=== PATIENT | male | born 1965 | race Caucasian/White ===

== ENCOUNTER 2020-04-27 08:27 | Emergency (ER) | payer MEDICARE ==
[~2020-04-27] VITALS: Ht 172.7 cm; Wt 80.7 kg
[~2020-04-27 08:27] MED LIST: ALBU90OI INH; AZIT250 PO; LORA1 PO; OXYACE5T PO; PRED20 PO; RISP.25 PO; RXOXYACE PO; Ventolin Soln3 ML INH; [UNRECOGNIZED DRUG - CODE] IM
[2020-04-27] MEDS ORDERED: Tylenol325 MG PO (09:23)
[2020-10-16] MEDS ORDERED: QUET25 PO (16:30)
[2020-10-16] MEDS ORDERED: Ativan1 MG PO (19:04)
== END 2020-04-27 09:39 | disposition home or self-care (01) ==
LOC: ER 08:27
DX: S80.02XA Contusion of left knee, initial encounter (principal); J44.9 Chronic obstructive pulmonary disease, unspecified; Z88.6 Allergy status to analgesic agent; Z79.899 Other long term (current) drug therapy; Z87.891 Personal history of nicotine dependence; W06.XXXA Fall from bed, initial encounter
CPT/HCPCS: 73562-LT; 99283-25

== ENCOUNTER 2021-06-30 09:15 | Inpatient (IN) | payer MEDICARE ==
[~2021-06-30] VITALS: Ht 172.7 cm; Wt 47.8 kg
[~2021-06-30 09:15] MED LIST changes: +Ativan1 MG PO; +QUET25 PO; +Tylenol325 MG PO
[2021-06-30 09:51] LABS: BASOPHILS ABSOLUTE AUTO 0.01 K/mm3 (0.00-0.23); BASOPHILS PERCENT AUTO 0 % (0-2); EOSINOPHILS ABSOLUTE AUTO 0.02 K/mm3 (0.00-0.68); EOSINOPHILS PERCENT AUTO 0 % (0-6); Hematocrit 34.2 % (37.0-53.0); Hemoglobin 10.9 g/dL (13.5-17.5); IMMATURE GRAN ABSOLUTE AUTO 0.05 K/mm3 (0.00-0.10); IMMATURE GRAN PERCENT AUTO 1 % (0-1); LYMPHOCYTES ABSOLUTE AUTO 0.43 K/mm3 (0.84-5.20); LYMPHOCYTES PERCENT AUTO 6 % (21-46); MONOCYTES PERCENT AUTO 5 % (4-13); Mean Corpuscular HGB 27.7 pg (26.0-34.0); Mean Corpuscular HGB Conc 31.9 g/dL (31.5-36.5); Mean Corpuscular Volume 87 fL (80-100); Mean Platelet Volume 8.2 fL (9.1-12.4); NEUTROPHILS PERCENT AUTO 88 % (41-73); Platelet Count 516 K/mm3 (150-400); RDW Coefficient Variation 12.9 % (11.7-14.2); RDW Standard Deviation 40.9 fL (35.1-46.3); Red Blood Cell Count 3.93 M/mm3 (4.30-5.90); White Blood Cell Count 7.81 K/mm3 (4.00-11.30)
[2021-06-30 10:17] LABS: Alanine Aminotransfer (ALT/SGP 34 U/L (12-78); Albumin, Blood 2.5 g/dL (3.4-5.0); Albumin/Globulin Ratio 0.5 (0.8-1.8); Alk Phos 118 U/L (50-136); Anion Gap 6 mmol/L (6-16); Aspartate Aminotrans (AST/SGOT 21 U/L (12-37); Bilirubin, Total 0.1 mg/dL (0.1-1.0); Blood Urea Nitrogen 5 mg/dL (8-24); Bun/Creatinine Ratio 12.8 (12.0-20.0); CO2, Blood 34 mmol/L (21-32); Calcium, Blood 8.8 mg/dL (8.5-10.1); Chloride, Blood 88 mmol/L (98-108); Creatinine, Blood 0.39 mg/dL (0.60-1.20); Globulin, Blood 4.9 g/dL (2.2-4.0); Glomerular Filtration Rate >60 (60-); Glucose, Blood 116 mg/dL (70-99); Potassium, Blood 4.3 mmol/L (3.5-5.5); Sodium, Blood 128 mmol/L (136-145); Total Protein, Blood 7.4 g/dL (6.4-8.2)
[2021-06-30 10:32] LABS: Influenza A, PCR NEGATIVE (NEGATIVE); Influenza B, PCR NEGATIVE (NEGATIVE); Resp Syncytial Virus, PCR NEGATIVE (NEGATIVE); SARS-Cov-2 (COVID-19) PCR, MMC NEGATIVE (NEGATIVE)
--- NOTE | 2021-06-30 14:13 | NUR ---
NEW ER PT. PT A/O X3 PLEASANT. ANSWERS GENERAL QUESTIONS PLEASANTLY. TALKATIVE. STAYS AT [facility]. HX SCHIZZOPHRENIA. H/R REG, NO MURMER NOTED. NO TELE. LUNGS DIM T/O. CLEAR, RESP EASY, UNLABORED. ON 2L O2. PT STATES THIS IS NOT NORMAL FOR HIM. STATES FEELS SOB WHEN COUGHING FIT. COUGHS UP OCC MOIST THICK WHITE FLUID. BT X4 LAST BM YEST PER PT. VOIDS STANDING FOR URINAL. REQUESTEED HIM TO GET ASSISTANCE, STATES FEELS SOME WEAKER THAN NORMAL. STATES HE WALKS ABOUT DISTANCE TO ELEVATOR EVERY 1-2 HRS AT HOME TO SMOKE. EVERY DAY. REFUSED NICOTINEPATCH. BED IN LOW POSITION, CALL LITE IN REACH, BED ALARM ON FOR SAFETY
--- NOTE | 2021-06-30 18:16 | NUR ---
PT PLEASANT SINCE ADMIT. PT HAS HX OF COPD AND SCHIZZOPHRENIA. HAS BEEN PLEASANT AND COOP TODAY. 1L FLUIDS RUNNING. HR REG, NO MURMER NOTED. LUNGS CLEAR, BUT DIM. DID GIVE SOLU-MEDROL TODAY. PT CONTINUES TO BE ON 2L O2 TO KEEP SATS >91%. HE DID AMBULATE TO BATHROOM TODAY SBA. NO NEW CONCERNS NOTED. BED IN LOW POSITION, CALL LITE IN REACH, CALLS APPROP
[2021-07-01 05:29] LABS: Hematocrit 35.1 % (37.0-53.0); Hemoglobin 10.9 g/dL (13.5-17.5); Mean Corpuscular HGB 27.3 pg (26.0-34.0); Mean Corpuscular HGB Conc 31.1 g/dL (31.5-36.5); Mean Corpuscular Volume 88 fL (80-100); Mean Platelet Volume 8.1 fL (9.1-12.4); Platelet Count 546 K/mm3 (150-400); RDW Coefficient Variation 12.8 % (11.7-14.2); RDW Standard Deviation 41.7 fL (35.1-46.3); White Blood Cell Count 6.96 K/mm3 (4.00-11.30)
[2021-07-01 06:07] LABS: Anion Gap 4 mmol/L (6-16); Blood Urea Nitrogen 9 mg/dL (8-24); Bun/Creatinine Ratio 17.5 (12.0-20.0); CO2, Blood 36 mmol/L (21-32); Calcium, Blood 8.5 mg/dL (8.5-10.1); Chloride, Blood 91 mmol/L (98-108); Creatinine, Blood 0.51 mg/dL (0.60-1.20); Glomerular Filtration Rate >60 (60-); Glucose, Blood 146 mg/dL (70-99); Potassium, Blood 4.5 mmol/L (3.5-5.5); Sodium, Blood 131 mmol/L (136-145)
--- NOTE | 2021-07-01 06:43 | NUR ---
PT IS AWAKE THIS MORNING. PT CAME IN FROM THE ED DUE TO INCREASED SOB DUE TO COPD EXACERBATION. PT IS ALERT AND ORIENTED, CURRENTLY ON 6L NC, NOT MONITORED. PT DID C/O OF INCREASED SOB DURING THE NIGHT. SOLUMEDROL HELPED RELIEVE SOME OF THE DIFFICULTY BREATHING BUT PT CONTINUED TO BECOME SOB SATTING IN THE LOW 80'S. TITRATED O2 TO 6L AND PT SATTING AT 92% AND FEELS MORE COMFORTABLE. WILL KEEP HIM ON 6L AND TITRATE DOWN TOLERATED. OTHERWISE NO ACUTE EVENTS OVERNIGHT. PT CALL LIGHT AND BELONGINGS WITHIN REACH.
[2021-07-01 10:33] LABS: Base Excess Venous 12.9 mmol/L; Bicarbonate Venous 33.3 mmol/L (24.0-30.0); PCO2 Venous 73.8 mmHg (38-42); PO2 Venous 41.8 mmHg (38-42); pH Blood Venous 7.33 (7.34-7.37)
--- NOTE | 2021-07-01 11:10 | NUR ---
AM NOTE - AT 0720 ASSESSMENT TO LEANING FORWARD, ABDOMINAL BREATHING AT 32 RPM. INSP AND EXP WHEEZES THROUGHOUT. ON O26LNC. HR RAPIS AND REGULAR. 0830 99%O2 SAT ON 6LNC, DECREASED TO 4LNC. BP 167/97. HR 106. D5. HACK TO BEDSIDE, AWARE OF PT SITTING POSITION, RAPID ABDOMINAL RESPIRATIONS, O2 SATS AND INCRESING O2 NEEDS OVERNIGHT. HE SAID HE WOULD ORDER ABG AND IF PT DETERIORATED PLAN FOR BIPAP AND TRANSFER TO PCU. 0900 SAT 96% ON 4LNC. OXYGEN DECREASED TO 2LNC. 1000. O2 SAT 70%, PT C/O FEELING INCREASED WORK OF BREATHING WHEN ASKED. O2 INCREASED TO 6LNC AND SAT QUICKLY BACK UP TO MID 90S. 1050 ABG RESULTS IN COMPUTER. HR 120S. O2 SAT 96% ON 4LNC. PT STILL LEANING FORWARD, ABDOMINAL BREATHING. RT JASWANT DONNELLY CALLED. 1100. RT AT BEDSIDE. HR 105 TO 110.
--- NOTE | 2021-07-01 11:34 | NUR ---
RN NOTE - PT NOT TOLERATING BIPAP FOR RT. RT, JASWANT RECOMMENDING NEBS AND HIGH FLOW O2. HE IS GOING TO CALL DR HALLMAN NOW.
--- NOTE | 2021-07-01 11:53 | NUR ---
MD CALLED PT REFUSING NEB, REFUSING BIPAP, DIESN'T WANT O2 MONITOR TO STAY ON HIM. RT AT BEDSIDE. I TALKED WITH PT AND ASKED HIM IF HE WANTS TO GET BETTER, WHICH HE DIDN'T SAY YES OR NO TO, I EXPLAINED TO HIM THAT IF THERE WAS NO PREVENTATIVE ACTION HE IS A FULL CODE HE COULD END UP SEDATED AND INTUBATED. HE TOLD US TO GO AWAY. I CAN'T FULLY ASSESSS ORIENTATION AT THIS TIME PT NOT ASKWERING ALL QUESTIONS, BUT HE DID SAY THAT HE KNOWS HE'S IN HOSPITAL. I ASKED HIM IF I CALL HIS FAMILY, HE SAID HE HAS NO FAMILY. PT REFUSING NEBULISER, EITHER MASK OR HAND HALD. HE 110-120, SATING LOW 90S LAST CHECK ON 6L NC, BUT STILLSITTING HUCHED OVER. ALL OF THIS EXPLAINED TO DR HALLMAN. DR HALLMAN SUGGESTED CALLING [facility] TO SEE WHAT HIS BASELINE IS AND INVOLVING PALIATIVE CARE WHEN THEY ARE AVAILABLE. NO NEW ORDERS AT THIS TIME.
--- NOTE | 2021-07-01 12:04 | NUR ---
FELIPE CALL - ATTEMPTED TO CALL PRADIP LEAL. DISCRETE VM LEFT. CALL TO [facility] WHERE HE RESIDES - DISCRETE MESSAGE LEFT.
--- NOTE | 2021-07-01 13:08 | NUR ---
UPDATE - CALL BACK FROM DAIN AT [facility] AND FROM MEL WHO IS MR VALDEZ'S GUARDIAN. DAIN SAID THAT MR VALDEZ IS NORMALLY ORIENTATEDX4, QUIET AND INDEPENDENT. SHE SAID SHE SENT HIS MED LIST OVER WITH HIM AND HE IS ON MEDS FOR SCHITZOPHRENIA. SHE CONTACTED MEL, GUARDIAN WHO CALLED ME RIGHT AWAY. MEL SAID THAT MR VALDEZ IS ON RESPIRADOL FOR SCHITZOPHRENIA. SHE SAID THAT IF HE'S NOT GETTING HIS MEDS HE USUALLY BECOMES PARANOID AND REFUSES CARE. SHE SAID SHE WILL ASK DAIN TO FAX HIS MED LIST OVER TO [facility] MEDICAL FLOOR.
[2021-07-01] MEDS ORDERED: ALBU90OI INH (14:32)
[2021-07-01] MEDS ORDERED: HALOPERIDOL2 MG/1 M1 PO (14:35)
[2021-07-01] MEDS ORDERED: LOPE2C PO (14:35)
[2021-07-01] MEDS ORDERED: ONDA4 PO (14:36)
[2021-07-01] MEDS ORDERED: RISP2 PO (14:45)
--- NOTE | 2021-07-01 15:01 | NUR ---
CALLED - MED REC DONE BY FLORAL DESIGNER SALESPERSON WITH LIST OF MEDS FAXED OVER FROM [facility]. BP ELEVATED, HR AND RR ELEVATED. O2 SAT 96% ON 6L NC. DR HALLMAN CALLED AND NOTIFIED OF MEDICATION INFORMATION AND OF VITAL SIGNS. HE SAID THAT HE WILL ORDER MEDICATIONS FOR BP AND PLACE ORDER FOR HOME MEDICATIONS. RESPIRADOL IS DAILY PER DR HALLMAN, AND HE SAID IT'S OK TO GIVE HIS FIRST DOSE NOW.
--- NOTE | 2021-07-01 15:54 | NUR ---
UPDATE ATTEMPTED TO GIVE MR VALDEZ HIS LISINOPRIL FOR HTN. PT REFUSING ORAL MEDICATION. HE BACKED AWAY FROM ME IN HIS BED, DIDN'T MAKE EYE CONTACT, DIDN'T SPEAK OR ANSWER ANY QUESTIONS AND PUT HIS ARMS UP TO GUARD HIMSELF FROM ME. I EXPLAINED WHAT THE MEDICATION WAS THAT I WAS TRYING TO GIVE HIM, I TOLD HIM THAT I HAD TALKED TO MEL AND DAIN (HIS GUARDIAN AND DAIN FROM [facility]) AND THAT THEY WANTED HIM TO GET HIS MEDICATIONS. I EXPLAINED THAT HE IS SAFE HERE AND TOLD HIM WHERE HE IS AND WHO I AM. UNSUCCESSFUL. NAIN, BRISTLE MACHINE OPERATOR TRIED TO TALK WITH HIM AND ASK HIM TO TAKE HIS MEDS UNSUCCESSFULLY. I CALLED AND UPDATED DR HALLMAN OF ALL OF THE ABOVE. HE SAID THAT HE WILL MAKE SOME ALTERATIONS TO HIS MEDICATIONS.
--- NOTE | 2021-07-01 17:38 | NUR ---
REPORT TO RN REPORT CALLED TO FLAVIA RODRÍGUEZ IN PCU. AWAITING BED TO BE CLEANED TO TRANSFER
--- NOTE | 2021-07-01 18:00 | NUR ---
SHIFT NOTE - SEE PRIOR NOTES FOR UPDATES THROUGHOUT THE DAY. MR VALDEZ HAD PERIODS OF LOW SATS WHILE TRYING TO WEAN HIM OFF OXYGEN, HIGH BP, HIGH HR, HIGH RESP RATE FOR MUCH OF THE DAY. DR HALLMAN KEPT INFORMED OF HIS STATUS THROUGHOUT THE DAY. RT CAME TO BEDSIDE AND ATTEMPTED TO GIVE HIM BIPAP AND NEB WHICH PT REFUSED. I SPOKE WITH MEL HIS GUARDIAN WHO SAID THAT HE IS ON HOME PSYCH MEDS FOR SCHITZOPHRENIA THAT HE NEEDS TO CONTINUE. MED LIST FAXED TO [facility], MED REC DONE AND DR HALLMAN INFORMED OF UPDATE. WHEN I TRIED TO GIVE HIM ORAL MEDS HE REFUSED TO TAKE THEM. SOON AFTER THIS DR HALLMAN ORDERED FOR TRASNFER TO PCU FOR BIPAP AND CLOSER RESP MONITORING. PT WAS GIVEN 0.5MG ATIVAN WHICH HELPED HIM TO REST, BUT HE WAS NOT AGGITATED THROUGHOUT THE DAY, HE SEEMED MORE ANXIOUS OR SCARED. TRANSFERED TO PCU AT 1810.
--- NOTE | 2021-07-01 18:25 | NUR ---
TRANSFER TO PCU TRANSFERED TO PCU FOR BIPAP/SEDATION PER DR HALLMAN. VASOTEC IV VIAL GIVEN TO FLAVIA RODRÍGUEZ IN PCU, SHE SAID THAT SHE WILL RECHECK HIS BP AND GIVE IT APPROPRIATE.
--- NOTE | 2021-07-01 19:33 | NUR ---
PT ARRIVED 1824 TO PCU 19. TELE PLACED, VS OBTAINED. 02 DECREASED INTO THE 70s, RT CALLED FOR BIPAP. PT MEDICATED PER EMAR FOR AGGITATION. BIPAP PLACED, PT PULLING AT MASK/LINES. UNABLE TO VERBALLY CALM PT. DR JAY NOTIFIED, NEW ORDERS RECEIVED. PT TRANSPORTED TO ICU 11 FOR BEDSIDE REPORT.
--- NOTE | 2021-07-02 02:13 | NUR ---
ASSUMED CARE/ TRANSFER: PT TRANSFERRED FROM PCU AT 1945, AFTER HAVING BEEN ON PCU FOR ONLY 1 HOUR. TRANSFERRED TO ICU FOR USE OF BILATERAL WRIST RESTRAINTS & PRECEDEX. PT MAKES EYE CONTACT, BUT DOES NOT FOLLOW COMMANDS AND ONLY ANSWERS YES/NO QUESTIONS ON OCCASION. HAY, STRONG, CONSTANTLY ATTEMPTING TO REMOVE BIPAP MASK & IV. PLACED IN BILATERAL WRIST RESTRAINTS FOR PT SAFETY. HAY. PRECEDEX GTT STARTED. PT IN SINUS TACHYCARDIA W/ RATES 130S-140S. HYPERTENSIVE, SBP >170. TEMP 99.8. PULSES PALPABLE THROUGHOUT. NO EDEMA. LUNG SOUNDS EXTREMELY DIM W/ VERY LITTLE AIR MOVEMENT AUDIBLE. FAINT INSPIRATORY & EXPIRATORY WHEEZES HEARD ANTERIORLY. PT ON BIPAP, 16/8, 40%, SPO2 >90%. RESPIRATORY RATE 40S. + BS. SMEAR INCONTINENT BM IN ATTENDS BRIEF. ATTENDS BRIEF HEAVILY SATURATED W/ URINE- REMOVED. CONDOM CATH PLACED. PT ARRIVES W/ ONE PIV IN RAC. 2ND PIV STARTED IN LFA.
[2021-07-02 03:34] LABS: Base Excess Venous 23.2 mmol/L; Bicarbonate Venous 43.2 mmol/L (24.0-30.0); PCO2 Venous 91.7 mmHg (38-42); PO2 Venous 71.6 mmHg (38-42); pH Blood Venous 7.34 (7.34-7.37)
[2021-07-02 03:37] LABS: Hematocrit 38.2 % (37.0-53.0); Hemoglobin 11.5 g/dL (13.5-17.5); Mean Corpuscular HGB 27.7 pg (26.0-34.0); Mean Corpuscular HGB Conc 30.1 g/dL (31.5-36.5); Mean Corpuscular Volume 92 fL (80-100); Mean Platelet Volume 8.2 fL (9.1-12.4); Platelet Count 565 K/mm3 (150-400); RDW Coefficient Variation 13.1 % (11.7-14.2); RDW Standard Deviation 44.2 fL (35.1-46.3); Red Blood Cell Count 4.15 M/mm3 (4.30-5.90); White Blood Cell Count 14.58 K/mm3 (4.00-11.30)
[2021-07-02 03:53] LABS: Blood Urea Nitrogen 9 mg/dL (8-24); Bun/Creatinine Ratio 25.2 (12.0-20.0); Calcium, Blood 9.5 mg/dL (8.5-10.1); Chloride, Blood 89 mmol/L (98-108); Creatinine, Blood 0.36 mg/dL (0.60-1.20); Glomerular Filtration Rate >60 (60-); Glucose, Blood 154 mg/dL (70-99); Potassium, Blood 4.4 mmol/L (3.5-5.5); Sodium, Blood 135 mmol/L (136-145)
[2021-07-02 04:11] LABS: Anion Gap Unable to Calculate mmol/L (6-16)
[2021-07-02 04:12] LABS: CO2, Blood >45 mmol/L (21-32)
--- NOTE | 2021-07-02 04:26 | NUR ---
UPDATE: CRITICAL VALUE OF PCO2 91.7 REPORTED TO MD JAY, WHO CAME TO ASSESS PATIENT. MD INFORMED THAT PT'S RESPIRATORY RATE HAS BEEN IN THE 20S-40S THROUGHOUT THE NIGHT, AND HIS WORK OF BREATHING CONTINUES TO INCREASE. PER HIS RECOMMENDATIONS: INCREASE BIPAP RATE TO TRY TO BLOW OFF CO2 & PLAN TO INTUBATE IF PATIENT BECOMES COMPLETELY UNRESPONSIVE. PROMOTIONS ASSOCIATE KEKE AWARE & CHARGE RT ALLISON NOTIFIED. RT INCREASED BIPAP SETTINGS TO 20/10, 40%, RR 20 (PT STILL BREATHING >20) PT AWOKE AND MANAGED TO REMOVE BIPAP. THIS RN ENTERED ROOM IN LESS THAN 5 SECONDS & REPLACED BIPAP MASK IMMEDIATELY. HEART RATE DROPPED FROM 130 TO 60 IN THAT TIME, AND INCREASED AGAIN TO 110S ONCE PATIENT WAS BACK ON BIPAP MASK. WILL REPEAT VBG @ 0530.
[2021-07-02 05:51] LABS: Bicarbonate Venous 44.1 mmol/L (24.0-30.0); PCO2 Venous 91.8 mmHg (38-42); PO2 Venous 45.7 mmHg (38-42); pH Blood Venous 7.34 (7.34-7.37)
--- NOTE | 2021-07-02 06:43 | NUR ---
SHIFT SUMMARY: PT ON PRECEDEX GTT @ 0.7. AWAKENS TO VOICE, ANSWERS SOME YES/NO, COGNITION OTHERWISE UNCHANGED. HAY. RESTLESS AT TIMES. STILL IN BILATERAL WRIST RESTRAINTS. LUNGS VERY DIM, LITTLE AIR MOVEMENT, L>R. FAINT EXPIRATORY & INSPIRATORY WHEEZES. NEBS GIVEN OVERNIGHT W/ INCREASE IN AIR MOVEMENT, INCREASE IN SPO2, AND COUGHING RESULTING. AM VBG SHOWED WORSENING LAB VALUES: CO2 91.7, HCO3 43.2, PO2 71.6, PH 7.34. PER MD, BIPAP RATE INCREASED TO 22. IPAP/EPAP INCREASED TO 20/10. FIO2 STILL AT 40%. REPEAT VBG SHOWED SLIGHT WORSENING OF PATIENT CONDITION. PATIENT NOW ALMOST COMPLETELY DEPENDENT UPON BIPAP RATE OF 22. HEART RATE RANGES FROM 95-130, AND DROPS PRECIPITOUSLY ALONG WITH SPO2 IF BIPAP REMOVED. PT VOIDING- INCONTINENT- CONDOM CATH IN PLACE. NO BM OVERNIGHT.
--- NOTE | 2021-07-02 07:30 | NUR ---
ASSUMPTION OF CARE RECEIVED REPORT FROM CUAUHTEMOC RODRÍGUEZ, ASSUMED CARE OF PATIENT. PATIENT ON BIPAP OF 20/10, RR 22, FIO2 40%, SPO2 97%. PATIENT EASILY AWOKE, ORIENTED TO PLACE STATING HE WAS AT [facility]. DENIED PAIN OR DISCOMFORTS. FOLLOWED COMMANDS, CALM AND COOPERATIVE WITH CARE. LUNGS DIMINISHED WITH EXP WHEEZES NOTED. PATIENT MOVING SHERI AND BLE STRONG AND EQUALLY. CONDOM CATH IN PLACE FOR INCONTINENCE. PRECEDEX INFUSING PERIPHERALLY AT 0.7 MCG/KG/HR. WILL REVIEW ORDERS AND TREAT PRESCRIBED.
--- NOTE | 2021-07-02 10:04 | NUR ---
MEDICATIONS AWOKE PATIENT AT 0930, BREAK FROM BIPAP GIVEN AND ORAL CARE PROVIDED. PATIENT TOLERATED WELL, MAINTAINING O2 SATS ABOVE 90% ON RA FOR A FEW MINUTES. PATIENT REMAINS DROWSY, DECREASED PRECEDEX. AT THIS TIME PATIENT WAS ASKED TO SWALLOW SOME WATER TO ASSESS SWALLOW FOR PO PILLS, PATIENT DECLINED AND KEPT SHAKING HIS HEAD NO TO WATER. ATTEMPTED THIS AT 1000 WELL, WILL HOLD PO MEDICATIONS AT THIS TIME UNTIL PATIENT'S RESPIRATORY STATUS IS STABLE ENOUGH TO TOLERATE PO INTAKE.
--- NOTE | 2021-07-02 11:23 | NUR ---
PHYSICIAN COMMUNICATION REVEIWED PATIENT'S STATUS, LABS, BIPAP SETTINGS, AND NEED FOR PRECEDEX AND RESTRAINTS WITH DR. GÓMEZ. PATIENT BECAME INCREASINGLY AGITATED WITH PRECEDEX AT 0.3MCG/KG/HR, PULLING AGAINST RESTRAINTS AND YELLING TO GET THE BIPAP OFF BECAUSE HE "COULDN'T BREATH". EXPLAINED TO PATIENT THIS WAS HIS OXYGEN, PATIENT KEPT SAYING "NO, KEEP IT OFF". PRECEDEX WAS INCREASED AND PATIENT BECAME CALM. CONTINUES TO EASILY AWAKEN AND FOLLOW COMMANDS WITH PRECEDEX AT 0.4 MCG/KG/HR. WILL REPEAT VBG AND START IVF PER CURRENT NPO STATUS. STATUS UPDATES WERE GIVEN TO NURSE AT PATIENT'S RESIDENCE GABY AND ALSO TO PATIENT'S GUARDIAN MEL.
[2021-07-02 11:52] LABS: Base Excess Venous 24.6 mmol/L; Bicarbonate Venous 45.8 mmol/L (24.0-30.0); PCO2 Venous 67.9 mmHg (38-42); PO2 Venous 107 mmHg (38-42); pH Blood Venous 7.46 (7.34-7.37)
--- NOTE | 2021-07-02 15:55 | NUR ---
BIPAP ATTEMPTED BREAK OFF BIPAP ON 5L HI FLOW AFTER BREATHING TREATMENT WAS ADMINISTERED BY RT. PATIENT WAS AWAKE, COOPERATIVE. WITHIN A COUPLE MINUTES PATIENT BECAME ANXIOUS, TACHYPNEIC, AND DIAPHORETIC. BIPAP WAS REPLACED AT SETTINGS OF 20/10 WITH FIO2 40%. SOLUMEDROL GIVEN. PATIENT NOW ATTEMPTING ANOTHER BREAK FROM BIPAP ON 8L O2 VIA HI-FLOW. ORIENTED TO SITUATION AND PLACE. WILL CONTINUE TO MONITOR.
--- NOTE | 2021-07-02 17:33 | NUR ---
SHIFT SUMMARY PATIENT SEDATED ON BIPAP AT START OF SHIFT. WAS EASY TO WAKE, ORIENTED TO PLACE AND PERSON. TITRATED PRECEDEX OFF AND BEGAN BIPAP BREAKS IN AFTERNOON. BY 1500, PATIENT AWAKE, ORIENTED. RESTRAINTS REMOVED. ON AND OFF BIPAP VS. AIRVO/ HI-FLOW. FIO2 TITRATED NEEDED. PATIENT TOELRATING PO LIQUIDS AT THIS TIME. DIETARY ROUNDED AND WILL RECOMMEND ENSURES TOLERATED. IV FLUIDS WERE STARTED PREVIOUSLY CHARTED, RECEIVED LAB ORDERS FROM DR. GÓMEZ FOR THE MORNING. WILL CONTINUE TO MONITOR AND REPORT TO ONCOMING RN.
--- NOTE | 2021-07-02 19:30 | NUR ---
PT REPORT RECEIVED. SAFTEY CHECK COMPLETED. FOUND PT ALERT SITTING UP IN BED WATCHING TV ON HFNC, 45L 60%. PT IS ORIENTED TO SELF, PLACE SITUATION AND MONTH BUT NOT YEAR. PT MAEW AND IS ABLE TO SHIFT HIS WEIGHT IN BED. PT DOES OCCASIONALLY HAVE LOW SPO2 BUT RECOVERS QUICKLY WHEN COACHED TO BREATH THROUGH HIS NOSE. PT DENIES COMPLAINT AT THIS TIME. ASSUMED PT CARE.
[2021-07-03 03:22] LABS: BASOPHILS ABSOLUTE AUTO 0.01 K/mm3 (0.00-0.23); BASOPHILS PERCENT AUTO 0 % (0-2); EOSINOPHILS ABSOLUTE AUTO 0.01 K/mm3 (0.00-0.68); EOSINOPHILS PERCENT AUTO 0 % (0-6); Hematocrit 33.9 % (37.0-53.0); Hemoglobin 10.2 g/dL (13.5-17.5); IMMATURE GRAN ABSOLUTE AUTO 0.06 K/mm3 (0.00-0.10); IMMATURE GRAN PERCENT AUTO 1 % (0-1); LYMPHOCYTES PERCENT AUTO 3 % (21-46); MONOCYTES ABSOLUTE AUTO 0.48 K/mm3 (0.16-1.47); MONOCYTES PERCENT AUTO 5 % (4-13); Mean Corpuscular HGB 27.6 pg (26.0-34.0); Mean Corpuscular HGB Conc 30.1 g/dL (31.5-36.5); Mean Corpuscular Volume 92 fL (80-100); Mean Platelet Volume 8.4 fL (9.1-12.4); NEUTROPHILS ABSOLUTE AUTO 9.02 K/mm3 (1.96-9.15); NEUTROPHILS PERCENT AUTO 91 % (41-73); Platelet Count 414 K/mm3 (150-400); RDW Standard Deviation 43.8 fL (35.1-46.3); White Blood Cell Count 9.88 K/mm3 (4.00-11.30)
[2021-07-03 03:42] LABS: Alanine Aminotransfer (ALT/SGP 23 U/L (12-78); Albumin, Blood 2.4 g/dL (3.4-5.0); Albumin/Globulin Ratio 0.6 (0.8-1.8); Alk Phos 92 U/L (50-136); Aspartate Aminotrans (AST/SGOT 11 U/L (12-37); Bilirubin, Total 0.2 mg/dL (0.1-1.0); Blood Urea Nitrogen 14 mg/dL (8-24); Bun/Creatinine Ratio 36.8 (12.0-20.0); Calcium, Blood 8.9 mg/dL (8.5-10.1); Chloride, Blood 88 mmol/L (98-108); Creatinine, Blood 0.38 mg/dL (0.60-1.20); Globulin, Blood 4.1 g/dL (2.2-4.0); Glomerular Filtration Rate >60 (60-); Glucose, Blood 151 mg/dL (70-99); Potassium, Blood 4.3 mmol/L (3.5-5.5); Sodium, Blood 135 mmol/L (136-145); Total Protein, Blood 6.5 g/dL (6.4-8.2)
[2021-07-03 03:52] LABS: CO2, Blood >45 mmol/L (21-32)
[2021-07-03 03:53] LABS: Anion Gap Unable to Calculate mmol/L (6-16)
--- NOTE | 2021-07-03 04:00 | NUR ---
0345- NOTIFIED BY LAB OF CO2>45 CRITICAL LAB VALUE. PT'S CO2 LEVEL ON VBG FROM 07/02 IN THE LATE MORNING WAS 67. LAB VALUE WAS DISSCUSSED WITH KEKE DOG HANDLER OR TRAINER NURSE AND DR. JAY WAS ALSO MADE AWARE OF THE SITUATION. PT'S MENTATION HAS BEEN IMPROVED THROUGHOUT THE SHIFT, COMPARED TO PREVIOUS SHIFTS. PT IS TOLLERATING THE BIPAP WITHOUT NEED FOR PRECEDEX OR RESTRAINTS. PT HAS CONSISTANTLY DENIED COMPLAINT.
--- NOTE | 2021-07-03 06:00 | NUR ---
ASSUME CARE: I have assumed care if this patient.
--- NOTE | 2021-07-03 07:00 | NUR ---
ASSUME CARE: I have assumed care of this patient.
--- NOTE | 2021-07-03 07:10 | NUR ---
PT ALERT AND ORIENTED X3, TO SELF, PLACE, AND SITUATION. PT ABLE TO STATE MONTH, BUT NOT YEAR. PT HAS CONSISTANTLY DENIED COMPLAINT THROUGHOUT THE NIGHT. PT WAS ABLE TOP STAND AND MOVE TO BED SIDE COMMODE WITH 1 PERSON ASSISTING WITH LINES WITHOUT DIFFICULTY. PT ABLE TO TOLLERATE SHORT PERIODS OFF OF BIPAP FOR DRINKS OF WATER/ORAL CARE. PT WAS ABLE TO SLEEP, MOSTLY NOT INTERUPTED, FROM [id number]. PT'S VSS.
--- NOTE | 2021-07-03 07:47 | NUR ---
UPDATE: This RN spoke with Dr. Barrios to update on pt status; telephone order for in hourse transfer.
--- NOTE | 2021-07-03 10:53 | NUR ---
Pt. is in bed and welcomes my visit. Pt. is pleasant but not resently interested in spiritual care. Listen empathicially and establish rapport. Pt. declined pastoral prayer in the room, butgave permission to pray for him in my office (which the manager hardware has already done). Pt. requested my name for potential follow up. Pt. verbalized gratitude for the spiritual care visit.
--- NOTE | 2021-07-03 19:15 | NUR ---
ASSUMED CARE. REPORT RECEIVED FROM ROSENDO RN. PT UP IN CHAIR AT THIS TIME. ON AIRVO, 35 L/MIN, 54% Fi02. IV ACCESS IN L/ARM AND R/ARM, WNL. PT ALERT AND ORIENTED, CALL LIGHT WITHIN REACH. VS STABLE, WILL CONTINUE TO MONITOR.
--- NOTE | 2021-07-03 19:42 | NUR ---
SHIFT SUMMARY: Pt transferred to PCU status this morning. He has been up in the chair for much of the day. He worked with both PT and OT today. Pt transfers independantly, uses call light appropriately, and urinal without issues. No BM today. Minimal appetite, however pt did drink two pots of decaf coffee.
[2021-07-04 03:30] LABS: BASOPHILS ABSOLUTE AUTO 0.02 K/mm3 (0.00-0.23); BASOPHILS PERCENT AUTO 0 % (0-2); EOSINOPHILS PERCENT AUTO 0 % (0-6); Hematocrit 35.8 % (37.0-53.0); Hemoglobin 10.7 g/dL (13.5-17.5); IMMATURE GRAN ABSOLUTE AUTO 0.13 K/mm3 (0.00-0.10); IMMATURE GRAN PERCENT AUTO 1 % (0-1); LYMPHOCYTES ABSOLUTE AUTO 0.38 K/mm3 (0.84-5.20); LYMPHOCYTES PERCENT AUTO 4 % (21-46); MONOCYTES ABSOLUTE AUTO 0.38 K/mm3 (0.16-1.47); MONOCYTES PERCENT AUTO 4 % (4-13); Mean Corpuscular HGB 27.4 pg (26.0-34.0); Mean Corpuscular HGB Conc 29.9 g/dL (31.5-36.5); Mean Corpuscular Volume 92 fL (80-100); Mean Platelet Volume 8.4 fL (9.1-12.4); NEUTROPHILS ABSOLUTE AUTO 10.03 K/mm3 (1.96-9.15); NEUTROPHILS PERCENT AUTO 92 % (41-73); Platelet Count 409 K/mm3 (150-400); RDW Standard Deviation 43.8 fL (35.1-46.3); Red Blood Cell Count 3.91 M/mm3 (4.30-5.90); White Blood Cell Count 10.94 K/mm3 (4.00-11.30)
[2021-07-04 03:59] LABS: Alanine Aminotransfer (ALT/SGP 24 U/L (12-78); Albumin, Blood 2.5 g/dL (3.4-5.0); Albumin/Globulin Ratio 0.6 (0.8-1.8); Alk Phos 86 U/L (50-136); Anion Gap 0 mmol/L (6-16); Aspartate Aminotrans (AST/SGOT 11 U/L (12-37); Bilirubin, Total 0.2 mg/dL (0.1-1.0); Blood Urea Nitrogen 18 mg/dL (8-24); Bun/Creatinine Ratio 30.7 (12.0-20.0); CO2, Blood 43 mmol/L (21-32); Chloride, Blood 90 mmol/L (98-108); Creatinine, Blood 0.59 mg/dL (0.60-1.20); Glomerular Filtration Rate >60 (60-); Glucose, Blood 134 mg/dL (70-99); Potassium, Blood 5.1 mmol/L (3.5-5.5); Sodium, Blood 133 mmol/L (136-145); Total Protein, Blood 6.5 g/dL (6.4-8.2)
--- NOTE | 2021-07-04 06:45 | NUR ---
SHIFT SUMMARY. PT RESTED IN BED THROUGHOUT NIGHT. ON AIRVO, 35 L/MIN, 55% Fi02. PT ALERT, UP TO COMMODE AND STANDING TO USE URINAL THROUGHOUT SHIFT, 2875 MLS CLEAR/YELLOW URINE OUT. VS STABLE THROUGHOUT SHIFT, SEE SHIFT ASSESSMENT FOR FURTHER DETAILS. WILL CONTINUE TO MONITOR AND REPORT OFF TO DAYSHIFT RN.
--- NOTE | 2021-07-04 08:00 | NUR ---
Assumed care. AOx4, quite, withdrawn and flat. Does make all needs known. Likes to watch TV and drink his coffee. Denies any pain or discomfort. Lung sounds are expirtory wheezes t/o. Airvo set at 45L FIO2 56%. SOB with exertion. Cough is occational with thick yellow secretions. Sats >90%. Sinus Tach on the monitor running in the 110-120's. BTx4, denies any issues. Uses urinal at bedside, clear yellow urine. Scab on back is open to air, healing well. IV's SL. Skin pale and cool. Gave warm blanket, and coffee. call light is in reach.
--- NOTE | 2021-07-04 11:30 | NUR ---
REPORT GIVEN TO ARUN RODRÍGUEZ ON MEDICAL FLOOR.
--- NOTE | 2021-07-04 12:16 | NUR ---
Pt. is in bed and awake. Met with Pt. Pt. is genrally unsettled, and is not forthcoming. Pt. displays evidence of confustion. Pt. verbalized desire to have this cook at school pray for him, but not in his presence. This cook at school has prayed for the Pt.
--- NOTE | 2021-07-04 12:30 | NUR ---
PATIENT TRANSFERRED TO MEDICAL FLOOR ROOM 359.
--- NOTE | 2021-07-04 15:32 | NUR ---
RECEIVED REPORT FROM RN IN ICU. PATIENT TRANSFERRED TO MEDICAL FLOOR IN WHEELCHAIR PATIENT ON 45L/MIN @ 56% 02. PATIENT IS A STANDBY ASSIST AND USES THE URINAL BY HIS BEDSIDE. PATIENT IS A PIVOT TRANSFER TO THE BEDSIDE COMMODE WELL.
--- NOTE | 2021-07-04 18:54 | NUR ---
PATIENT ARRIVED FROM THE ICU ON AIRVO. PATIENT ALERT AND ORIENTED 3X. PATIENT ABLE TO STAND UP STEADY TO USE URINAL. PATIENT DID NOT HAVE A BOWEL MOVEMENT DURING AFTERNOON SHIFT. PT INDEPENDANT PRIOR TO COPD EXACERBATION. WILL REPORT TO ONCOMING RN UPON ARRIVAL.
[2021-07-05 04:07] LABS: BASOPHILS ABSOLUTE AUTO 0.03 K/mm3 (0.00-0.23); BASOPHILS PERCENT AUTO 0 % (0-2); EOSINOPHILS PERCENT AUTO 0 % (0-6); Hematocrit 37.9 % (37.0-53.0); Hemoglobin 11.3 g/dL (13.5-17.5); IMMATURE GRAN ABSOLUTE AUTO 0.18 K/mm3 (0.00-0.10); IMMATURE GRAN PERCENT AUTO 2 % (0-1); LYMPHOCYTES PERCENT AUTO 3 % (21-46); MONOCYTES ABSOLUTE AUTO 0.28 K/mm3 (0.16-1.47); MONOCYTES PERCENT AUTO 3 % (4-13); Mean Corpuscular HGB 27.4 pg (26.0-34.0); Mean Corpuscular HGB Conc 29.8 g/dL (31.5-36.5); Mean Corpuscular Volume 92 fL (80-100); Mean Platelet Volume 8.3 fL (9.1-12.4); NEUTROPHILS ABSOLUTE AUTO 8.25 K/mm3 (1.96-9.15); NEUTROPHILS PERCENT AUTO 91 % (41-73); Platelet Count 394 K/mm3 (150-400); RDW Coefficient Variation 13.1 % (11.7-14.2); RDW Standard Deviation 44.1 fL (35.1-46.3); Red Blood Cell Count 4.12 M/mm3 (4.30-5.90); White Blood Cell Count 9.04 K/mm3 (4.00-11.30)
[2021-07-05 04:31] LABS: Blood Urea Nitrogen 18 mg/dL (8-24); Bun/Creatinine Ratio 30.7 (12.0-20.0); Calcium, Blood 9.6 mg/dL (8.5-10.1); Chloride, Blood 89 mmol/L (98-108); Creatinine, Blood 0.59 mg/dL (0.60-1.20); Glomerular Filtration Rate >60 (60-); Glucose, Blood 157 mg/dL (70-99); Potassium, Blood 4.4 mmol/L (3.5-5.5); Sodium, Blood 137 mmol/L (136-145)
[2021-07-05 04:32] LABS: Anion Gap Unable to Calculate mmol/L (6-16)
[2021-07-05 04:35] LABS: CO2, Blood >45 mmol/L (21-32)
--- NOTE | 2021-07-05 05:02 | NUR ---
CRITICAL LAB RECEIVED CO2 >45 PT HAS BEEN RUNNING SAME RANGE SINCE ADM CHARGE NURSE AWARE .
--- NOTE | 2021-07-05 05:10 | NUR ---
SHIFT SUMMARY PATIENT ALERT AND ORIENTED X4 HARD TO UNDERSTAND HIM WHEN TALKING .REFUSED CPAP AT BED TIME CONT AIRVO 45L/MIN 56% O2 SPO2 99% NO SOB NOTED , VOSETEC HELD AT MIDNIGHT DUE TO VITAL OUT OF RANGE PER ORDER PT CALM SLEPT WELL MOST OF THE NIGHT NO ACUTE CHANGE NOTED
--- NOTE | 2021-07-05 17:12 | NUR ---
PATIENT ASLEEP AND IN BED ON AIRVO. PATIENT'S O2 SATS STABLE AT THE TIME AND HR FLUCTUATING FROM 90-100'S. PATIENT HAS HAD 2-3 INCONTINENT EPISODES IN BED. CONDOM CATH APPLIED 4 PM. . OT WORKED WITH PT WHO HAS BEEN EXPERIENCING SOB AND DESAT TO 70'S AFTER AMBULATING. RN DID ALERT OT THAT THIS HAPPENED EARLIER 07/05/21 AND RT WAS CALLED IN TO ASSIST. PATIENT AT THAT TIME TOOK ABOUT 5-7 MINUTES FOR 02 SATS TO RETURN TO 80-90'S AND HR TO RETURN BELOW 120'S. PLEASE SEE 0T NOTE FOR DETAILED EPISODE OF PATIENT DESATING AND GOING INTO VTACH. VTACH STRIP RECORDED IN PT'S CHART. MD NOTIFIED. WILL REPORT TO RN UPON ARRIVAL.
--- NOTE | 2021-07-06 04:49 | NUR ---
SHIFT SUMMARY PT IS A 56 Y/O MALE, ADMITTED FOR COPD EXACERBATION. HE IS A&O X 3, BEDREST D/T EXTREME SOB AND DESATTING WITH ANY EXERTION. CURRENTLY ON AIRVO, 45L @ 50% O2. SATTING 96-100% AT REST. VITAL SIGNS OTHERWISE STABLE. NO C/O PAIN OR NAUSEA. NO OTHER ACUTE CHANGES IN PT CONDITION NOTED. WILL CONTINUE TO MONITOR AND TREAT PER EMAR UNTIL HAND OFF TO DAY SHIFT RN.
[2021-07-06 05:28] LABS: BASOPHILS ABSOLUTE AUTO 0.04 K/mm3 (0.00-0.23); BASOPHILS PERCENT AUTO 0 % (0-2); EOSINOPHILS PERCENT AUTO 0 % (0-6); Hematocrit 38.7 % (37.0-53.0); Hemoglobin 11.4 g/dL (13.5-17.5); IMMATURE GRAN ABSOLUTE AUTO 0.25 K/mm3 (0.00-0.10); IMMATURE GRAN PERCENT AUTO 2 % (0-1); LYMPHOCYTES ABSOLUTE AUTO 0.32 K/mm3 (0.84-5.20); LYMPHOCYTES PERCENT AUTO 3 % (21-46); MONOCYTES ABSOLUTE AUTO 0.75 K/mm3 (0.16-1.47); MONOCYTES PERCENT AUTO 6 % (4-13); Mean Corpuscular HGB 27.7 pg (26.0-34.0); Mean Corpuscular HGB Conc 29.5 g/dL (31.5-36.5); Mean Corpuscular Volume 94 fL (80-100); Mean Platelet Volume 8.8 fL (9.1-12.4); NEUTROPHILS ABSOLUTE AUTO 11.58 K/mm3 (1.96-9.15); NEUTROPHILS PERCENT AUTO 90 % (41-73); Platelet Count 389 K/mm3 (150-400); RDW Coefficient Variation 13.2 % (11.7-14.2); Red Blood Cell Count 4.12 M/mm3 (4.30-5.90); White Blood Cell Count 12.94 K/mm3 (4.00-11.30)
[2021-07-06 05:48] LABS: Blood Urea Nitrogen 24 mg/dL (8-24); Calcium, Blood 9.6 mg/dL (8.5-10.1); Chloride, Blood 91 mmol/L (98-108); Creatinine, Blood 0.69 mg/dL (0.60-1.20); Glomerular Filtration Rate >60 (60-); Glucose, Blood 179 mg/dL (70-99); Magnesium, Blood 2.6 mg/dL (1.6-2.4); Potassium, Blood 4.1 mmol/L (3.5-5.5); Sodium, Blood 138 mmol/L (136-145)
[2021-07-06 06:06] LABS: Anion Gap Unable to Calculate mmol/L (6-16)
[2021-07-06 06:08] LABS: CO2, Blood >45 mmol/L (21-32)
--- NOTE | 2021-07-06 10:06 | NUR ---
Pt arrived from medical floor. He is on the Bipap @/. Rt is at the bedside. His current o2 sats are at 95% on the bipap. He is sitting in tripod position with a pillow on the beside table. He is a/o x 4 and able to answer questions. His lung sounds are tight and wheezy with RR of 28 and is sinus tach @ 105. He has his call light in reach and verbalizes an understanding of when and how to use it.
[2021-07-06 11:03] LABS: PCO2 Arterial > 105 mmHg (35-45); pH Blood Arterial 7.26 (7.35-7.45)
[2021-07-06 11:05] LABS: PO2 Arterial 62.8 mmHg (80-100)
--- NOTE | 2021-07-06 11:53 | NUR ---
Pt continues to have increased work of breathing. RT has been at the bedside. Dr Barrios came to see the pt and Blas was contacted for a copy of the POLST, which they did not have. Dr Bender was notified and came to see the pt at the bedside. Blas gave us the name of the pt's guardian and She spoke with DR Bender. The descision was made for the pt to transfer to ICU. The pt was notified of the plan and report was given to the receiving ESCALATOR MECHANIC. Pt was transferred along with his personal items.
--- NOTE | 2021-07-06 12:43 | NUR ---
Pt to ICU 13 from PCU 6. Bedside report received from Obed RODRÍGUEZ. Dr Bender at pt bedside in PCU and on ICU arrival. Pt arrived on V60 BiPAP, 16/8, 40%, BUR 14. Actual RR 20s, Tidal Volumes high 300s. Lungs diminished t/o. Pt tripoding. Pt sitting up, lethargic. Unable to understand answers to asked questions due to BiPAP mask. Pt cooperative with IV attempts and administration of IM zyprexa. ST per monitor, rate 110-119. Hypertensive. Plan to start precedex to assist pt with relaxation.
[2021-07-06 14:10] LABS: Source, Urine Foley catheter
[2021-07-06 14:14] LABS: Bilirubin, Urine Neg (Neg); Blood, Urine 2+ (Neg); Glucose Qualitative, Urine Neg (Neg); Ketones, Urine Neg (Neg); Leukocyte Esterase, Urine Neg (Neg); Nitrite, Urine Neg (Neg); Protein, Urine 1+ (Neg); Specific Gravity, Urine 1.015 (1.003-1.022); Urobilinogen, Urine NORM (Normal)
[2021-07-06 14:22] LABS: Appearance, Urine Clear (Clear); Color, Urine Pale Yellow (P-Yellow)
[2021-07-06 14:23] LABS: White Blood Cells, Urine 0-2 /hpf (0-5)
[2021-07-06 14:24] LABS: Bacteria Rare /hpf; Squamous Epithelial Cells Rare /hpf (Few)
--- NOTE | 2021-07-06 15:01 | NUR ---
PATIENT TRANSFER THE PATIENT STARTED THIS MORNING ON AIRVOW ON 45LPM SATTING AT 50% THE PATIENT WAS TITRATED DOWN TO 40LPM AT 50% FOR A SHORT TIME. THE PATIENT HAD A HARD TIME KEEPING THE AIRVOW ON, AND DSATTED QUICKLY WITH ANY MOVEMENT. THEIR O2 LEVELS DROPPED INTO THE 60'S. DR. GÓMEZ NOTIFIED. THE PATIENT WAS THEN PUT ON A BIPAP. THE PATIENT'S O2 LEVELS INCREASED TO 89. THE PATIENT WAS TRANSFERRED TO PCU 6 A 10AM.
[2021-07-06 17:00] LABS: Base Excess Venous 28.1 mmol/L; Bicarbonate Venous 49.8 mmol/L (24.0-30.0); PCO2 Venous 56.8 mmHg (38-42); PO2 Venous 49.6 mmHg (38-42); pH Blood Venous 7.56 (7.34-7.37)
--- NOTE | 2021-07-06 17:16 | NUR ---
SUMMARY Neuro: A&O x 1. Speaks in singular words when given break from BiPAP. Pupils 3 mm, PERRLA. 1 mcg/kg/hr precedex for BiPAP tolerance. Musculoskeletal: In bilat soft wrist restraints to prevent self-removal of mask. Repositions self in bed very often between left/right/tripod. Respiratory: Lungs diminished t/o. BiPAP 16/8, 30% FiO2. Dry, nonproductive cough noted. Cardiac: ST per monitor, rate 100-119. BP stable. 2+ radial, pedal, posttibial pulses. No edema. Capillary refill less than 3 seconds BUE and BLE GI: NPO at this time. Hypoactive BT. No BM for several days. : Coude catheter placed for strict measurement of fluid intake and output. Skin: No changes to initial assessment. Psychosocial: Anxious.
--- NOTE | 2021-07-06 20:00 | NUR ---
ASSUMED CARE OF PT AT 1915. REPORT RECEIVED AT BEDSIDE. PT PRESENTS IN BED. SLEEPING AT TIME OF CONTACT. PT ON BIPAP WITH FIO2 AT 35 PERCENT. LUNGS EXTREMELY DIMINISHED EVEN WITH PT HAVING TIDAL VOLUMES VALUED IN MID 400'S. WITH BRIEF INTERUPTION FOR ORAL CARE TO NASAL CANNULA, PT QUICKLY DESATATRATED TO 62 PERCENT. MASK PLACED BACK TO PT WHEREAS HIS SATURATIONS INCREASED TO 92-94 PERCENT. PT WAS TURNED TO HIS LEFT SIDE, AND HE PROMPTLY TURNS BACK TO HIS RIGHT SIDE. DID USE TURN ASSIST AND ADDITIONAL PILLOWS TO HELP PT REMAIN TO LEFT SIDE. WILL CONTINUE TO MONITOR PT. WILL REVIEW CHART AND PLAN OF CARE FOR THIS PT.
--- NOTE | 2021-07-07 01:09 | NUR ---
SPOKE TO NOLBERTO WHO IS THE PATIENT'S SISTER. SHE STATES THAT THE LEGAL GAURDIAN FOR THIS PT IS COURT APPOINTED SECONDARY TO NOLBERTO LIVING OUT OF STATE. UPDATE OF PATIENT'S CONDITION GIVEN. ALLOWED FOR QUESTIONS. PT CONTINUES ON PRECEDEX DRIP WHICH WAS INCREASED FROM 1.0 MCG'S TO 1.2MCG'S SECONDARY TO INCREASED AGITATION. PT HAS MANAGED TO BEND HIMSELF TOWARDS HIS HAND TO GET AHOLD OF HIS BIPAP MASK AND GET IT OFF HIS FACE. PT ALSO NOTED TO HAVE SMALL AMOUNT OF HEMATURIA FROM CATHETER. PT WAS NOT OBSERVED PULLING AT CATHETER TUBE. URINE HAS CLEARED UP TO STRAW COLORED. PT CURRENTLY RESTING IN BED. WILL CONTINUE TO MONITOR.
[2021-07-07 03:35] LABS: BASOPHILS ABSOLUTE AUTO 0.02 K/mm3 (0.00-0.23); BASOPHILS PERCENT AUTO 0 % (0-2); EOSINOPHILS PERCENT AUTO 0 % (0-6); Hematocrit 36.6 % (37.0-53.0); IMMATURE GRAN ABSOLUTE AUTO 0.15 K/mm3 (0.00-0.10); IMMATURE GRAN PERCENT AUTO 1 % (0-1); LYMPHOCYTES ABSOLUTE AUTO 0.28 K/mm3 (0.84-5.20); LYMPHOCYTES PERCENT AUTO 3 % (21-46); MONOCYTES PERCENT AUTO 5 % (4-13); Mean Corpuscular HGB 27.6 pg (26.0-34.0); Mean Corpuscular HGB Conc 30.1 g/dL (31.5-36.5); Mean Corpuscular Volume 92 fL (80-100); NEUTROPHILS ABSOLUTE AUTO 10.25 K/mm3 (1.96-9.15); NEUTROPHILS PERCENT AUTO 92 % (41-73); Platelet Count 328 K/mm3 (150-400); RDW Coefficient Variation 13.1 % (11.7-14.2); Red Blood Cell Count 3.99 M/mm3 (4.30-5.90)
[2021-07-07 03:48] LABS: Blood Urea Nitrogen 27 mg/dL (8-24); Calcium, Blood 9.4 mg/dL (8.5-10.1); Chloride, Blood 96 mmol/L (98-108); Creatinine, Blood 0.59 mg/dL (0.60-1.20); Glomerular Filtration Rate >60 (60-); Glucose, Blood 194 mg/dL (70-99); Potassium, Blood 4.1 mmol/L (3.5-5.5); Sodium, Blood 145 mmol/L (136-145)
[2021-07-07 04:15] LABS: Anion Gap Unable to Calculate mmol/L (6-16)
[2021-07-07 04:16] LABS: CO2, Blood >45 mmol/L (21-32)
[2021-07-07 06:02] LABS: Base Excess Venous 26.8 mmol/L; Bicarbonate Venous 47.2 mmol/L (24.0-30.0); pH Blood Venous 7.42 (7.34-7.37)
--- NOTE | 2021-07-07 07:36 | NUR ---
Assumed care of pt at 0700 from Govind RODRÍGUEZ. Pt resting in bed. Precedex 1.4 mcg/kg/hr. HR 70s, sinus. BP stable. Pt on BiPAP 18/8 and 30% FiO2. RR low 20s. Tidal volume 450-495 mL.
--- NOTE | 2021-07-07 15:00 | NUR ---
Dr Ghosh in to see patient. Provider states plan to stop precedex and give break from BiPAP. Precedex off. Pt on 3 LPM NC.
--- NOTE | 2021-07-07 17:36 | NUR ---
SUMMARY Neuro: Precedex off. Haldol and zyprexa available PRN, however not utilized this shift. Pt alert. Answers questions, although beyond providing name/date of , answers are not factual. Follows commands. Cooperative with care, however remains in restraints as he removes NC which results in drop of SpO2. 3 mm pupils, PERRL. NPO due to weak cough and pt is not alert enough for safe PO intake. Musculoskeletal: Moves all extremities with equal strength. Repositioned Q2H; pt often repositions independently or with verbal cues alone. Pt often repositions self off of pillows. Respiratory: Currently receiving 2 LPM NC. Capnography in place. Lungs dim t/o. Dry, weak, nonproductive cough. Cardiac: Currently SR with rate at 98. Previously tachycardic, rate ranging 100-119- sinus tach. Received labetalol for high SBP and this helped HR as well. No edema. Capillary refill less than 3 seconds BUE and BLE. GI: No BM this shift. No PO intake this shift. Hypoactive BT. : Martin catheter draining meño urine Skin: No changes to initial assessment Psychosocial: Family did not request update this shift. Pt educated on plan of care.
--- NOTE | 2021-07-07 19:12 | NUR ---
ASSUMED CARE OF PT AT 1900. REPORT RECEIVED AT [facility]. PT PRESENTS IN BED WITH LABORED BREATHING. MAINTAINS SATURATIONS > 90 PERCENT WITH 6 L/M O2 FLOW. HAS MOIST NONPRODUCTIVE COUGH. PT DOES MAKE EYE CONTACT. WILL REVIEW CHART AND PLAN OF CARE FOR THIS PT.
--- NOTE | 2021-07-07 21:41 | NUR ---
SPOKE WITH DR PERKINS THIS EVENING CONCERNING PLAN WITH PT. CHEST X RAY IN AM WITH LABS ORDERED. DR PERKINS STATES HE WILL CALL PT'S SISTER, NOLBERTO, TOMORROW FOR UPDATE. OF NOTE: NOLBERTO CALLS FOR UPDATE FOR HER BROTHER. THIS PROVIDED. DID INFORM HER THAT DR PERKINS HAS THE INTENT TO CALL HER TOMORROW. PT MEDICATED WITH 40 MG LABETALOL FOR ELEVATED BLOOD PRESSURE. PENDING RESULTS. SEE VS FLOWSHEET FOR DETAILS. IF NEEDED, WILL USE HYDRALAZINE.
--- NOTE | 2021-07-07 22:00 | NUR ---
PT HAS ELEVATED BLOOD PRESSURES WHICH IS MEDICATED WITH LABATELOL. MARGINAL RESULTS. HAVE DONE BEDSIDE SWALLOW EVAL WITH PT. SEE DOCUMENTATION NOTED. HAVE REMOVED WRIST RESTRAINTS AT THIS TIME SECONDARY TO PT'S MENTATION IMPROVING. PT MAKES VERBAL AGREEMENT TO NOT PULL AT BIPAP MASK, AND THAT SOME BREAKS FROM MASK WILL BE MADE THIS NIGHT. WILL CONTINUE TO MONITOR.
--- NOTE | 2021-07-08 02:30 | NUR ---
HAVE RESTARTED PRECEDEX DRIP WITH RATE INCREASED TO 1.O MCG'S. PT HAS BEEN PULLING HIS BIPAP MASK OFF WHEREAS HE QUICKLY DESATURATES TO 72 PERCENT. PT REQUIRES SOFT WRIST RESTRAINTS TO BE REPLACED. PT STILL MAKES ATTEMPTS TO GET AHOLD OF HIS MASK TO REMOVE. HAVE MEDICATED PT WITH HYDRALAZINE FOR ELEVATED BLOOD PRESSURES. WILL CONTINUE TO MONITOR.
[2021-07-08 03:56] LABS: BASOPHILS ABSOLUTE AUTO 0.02 K/mm3 (0.00-0.23); BASOPHILS PERCENT AUTO 0 % (0-2); EOSINOPHILS PERCENT AUTO 0 % (0-6); Hematocrit 41.2 % (37.0-53.0); Hemoglobin 12.3 g/dL (13.5-17.5); IMMATURE GRAN ABSOLUTE AUTO 0.17 K/mm3 (0.00-0.10); IMMATURE GRAN PERCENT AUTO 2 % (0-1); LYMPHOCYTES ABSOLUTE AUTO 0.23 K/mm3 (0.84-5.20); LYMPHOCYTES PERCENT AUTO 2 % (21-46); MONOCYTES ABSOLUTE AUTO 0.55 K/mm3 (0.16-1.47); MONOCYTES PERCENT AUTO 5 % (4-13); Mean Corpuscular HGB 27.2 pg (26.0-34.0); Mean Corpuscular HGB Conc 29.9 g/dL (31.5-36.5); Mean Corpuscular Volume 91 fL (80-100); Mean Platelet Volume 8.9 fL (9.1-12.4); NEUTROPHILS ABSOLUTE AUTO 9.99 K/mm3 (1.96-9.15); NEUTROPHILS PERCENT AUTO 91 % (41-73); Platelet Count 357 K/mm3 (150-400); RDW Coefficient Variation 13.6 % (11.7-14.2); RDW Standard Deviation 45.2 fL (35.1-46.3); Red Blood Cell Count 4.52 M/mm3 (4.30-5.90); White Blood Cell Count 10.96 K/mm3 (4.00-11.30)
[2021-07-08 04:13] LABS: Blood Urea Nitrogen 29 mg/dL (8-24); Bun/Creatinine Ratio 55.8 (12.0-20.0); Calcium, Blood 9.8 mg/dL (8.5-10.1); Chloride, Blood 104 mmol/L (98-108); Creatinine, Blood 0.52 mg/dL (0.60-1.20); Glomerular Filtration Rate >60 (60-); Glucose, Blood 211 mg/dL (70-99); Potassium, Blood 3.4 mmol/L (3.5-5.5); Sodium, Blood 152 mmol/L (136-145)
[2021-07-08 04:37] LABS: Anion Gap Unable to Calculate mmol/L (6-16); CO2, Blood >45 mmol/L (21-32)
--- NOTE | 2021-07-08 06:41 | NUR ---
AFTER AM LAB WAS DRAWN, PT PLACE BACK TO 4-6 LITERS NASAL CANNULA OXYGEN. PT HAS MAINTAINED SATURATIONS > 90. PT CONTINUES TO TRY AND PULL OXYGEN OFF. AFTER PT HAD GOTTEN AHOLD OF HIS OXYGEN AND MANAGED TO GET THIS OFF, PT'S SATURATIONS AGAIN DROP TO LOW 70 PERCENTS. AFTER PLACING OXYGEN BACK ON, TEACHING DONE WITH PT THAT REMOVING HIS OXYGEN COULD RESULT IN INJURY, AND EVEN . ASKED IF THIS WAS PATIENT'S INTENTIONS, PT STATES, "NO" USE OF 14 BELARUSIAN SUBGLOTAL SUCTION CATHETER WAS ABLE TO RETRIEVE CREAM COLORED SECRETIONS WHICH HAS ALSO MADE PT COUGH MORE TO EXPECTORATE MORE OF SAME. PT DOES HAVE STIMULATED GAG REFLEX WITH THIS. AFTERWARDS, DID GIVE PT AN ICE CHIP TO SEE HOW PT WOULD DO. HE HAD COUGH AFTERWARDS. WILL NOT PURSUE FURTHER ATTEMPTS AT SWALLOW THIS AM. PT CURRENTLY SLEEPING FOR HIS FIRST TIME THIS NIGHT. PRECEDEX CONTINUES AT 1 MCG. WILL CONTINUE TO MONITOR PT, AND WILL REPORT OFF TO ONCOMING RN.
--- NOTE | 2021-07-08 07:27 | NUR ---
ASSUMED CARE: PT RESTING QUIETLY, TITRATED O2 TO 2L NC DUE TO O2 SAT 100%, PT APPEARS TO BE CO2 RETAINER BASED ON BLOOD GAS RESULTS. NSR ON TELE. PRECEDEX GTT IN PLACE AT 1MCG/KG/MIN. COLLAZO CATH DRAINING CLEAR YELLOW URINE. BILATERAL WRIST RESTRAINTS IN PLACE. NO ACUTE NEEDS AT THIS TIME.
--- NOTE | 2021-07-08 11:49 | NUR ---
PT BECAME VERY RESTLESS AND WAS TWISTING AND FIDGETING IN BED. CALLED OUT TO STAFF. RN CAME TO BEDSIDE AND INCREASED PRECEDEX GTT TO 0.7 MCG/KG AFTER GIVING DOSE OF IV HALDOL. PT'S RR INCREASED INTO 30S AND 40S. TRANSITIONED PT TO BIPAP WITH SETTINGS 18/8 AND 30% FIO2. BILATERAL WRIST RESTRAINTS REMAIN IN PLACE DUE TO PT ATTEMPTING TO PULL OFF OXYGEN FREQUENTLY.
--- NOTE | 2021-07-08 17:07 | NUR ---
DISCUSSED WITH DR PERKINS THE FACT THAT PT HAS REMAINED NPO ALL DAY AND UNABLE TO TAKE PO MEDS. DUE TO THIS, PT IS ON PRECEDEX GTT AND REQUIRING IV ANXIETY AND BP MEDS. DR INSTRUCTS FOR NEW BP MED AND STATES HE PLANS TO DISCUSS FURTHER PLANS WITH PT'S SISTER.
--- NOTE | 2021-07-08 18:19 | NUR ---
SHIFT SUMMARY: PT REMAINS ON BIPAP AT 16/8 WITH 30% FIO2. SATTING AT 94% ON THIS. BILATERAL WRIST RESTRAINTS DUE TO CONFUSION AND ATTEMPTING TO PULL OFF NC OR BIPAP MASK. PRECEDEX GTT REMAINS AT 0.7MCG/KG/MIN. DR PERKINS SPOKE WITH PT'S SISTER REGARDING PLANS OF CARE. PLANNING ON ORDERING HEAD CT TO R/O STROKE AND INSTRUCTS TO GIVE INCREASED DOSE OF HALDOL FOR PT'S AGITATION. FOR BP DR INSTRUCTED TO INCREASE NITRO PASTE ORDERS. NO FURTHER NEEDS AT THIS TIME.
[2021-07-09 04:00] LABS: Albumin, Blood 2.6 g/dL (3.4-5.0); Anion Gap 0 mmol/L (6-16); Blood Urea Nitrogen 31 mg/dL (8-24); Bun/Creatinine Ratio 52.7 (12.0-20.0); CO2, Blood 45 mmol/L (21-32); Calcium, Blood 9.2 mg/dL (8.5-10.1); Chloride, Blood 109 mmol/L (98-108); Creatinine, Blood 0.59 mg/dL (0.60-1.20); Glomerular Filtration Rate >60 (60-); Glucose, Blood 156 mg/dL (70-99); Phosphorus, Blood 2.5 mg/dL (2.5-4.9); Potassium, Blood 3.4 mmol/L (3.5-5.5); Sodium, Blood 154 mmol/L (136-145)
--- NOTE | 2021-07-09 05:44 | NUR ---
SHIFT SUMMARY: PT RESPONDS TO VERBAL STIMULI AND CAN INTERMITTENTLY FOLLOW COMMANDS, ANSWER QUESTIONS WITH YES/NO. CANNOT FORMULATE FULL SENTENCES BUT ABLE TO SAY WORDS. DIFFICULT TO UNDERSTAND WITH BIPAP MASK. PERRLA @ 3. REMAINS ON PRECEDEX GTT DUE TO AGITATION AND DESATURATION WITHOUT BIPAP MASK. GAVE 1X HALDOL 8 MG ORDERED TONIGHT, AND ABLE TO TITRATE PRECEDEX GTT DOWN TO 0.2 MCG/KG/HR AT 0530. BILAT SOFT WRIST RESTRAINTS STILL ON. ON BIPAP MASK, TOLERATING OK. SETTINGS ARE 16/8, 30% FIO2. NONPRODUCTIVE COUGH. BP BECAME HYPOTENSIVE AFTER HALDOL DOSE, HELD NITRO PASTE 2X DUE TO HYPOTENSION. AFEBRILE. PULSES ARE PALPABLE. NSR IN THE 70's REMAINS NPO AND UNABLE TO GIVE PO MEDICATION. WILL LET ONCOMING DAY SHIFT RN KNOW AND POTENTIALLY TRY AGAIN FOR SWALLOW EVALUATION TODAY. NO BM. COLLAZO REMAINS PATENT, URINE OUTPUT MORE TEA COLORED AT THE END OF THE NIGHT.
--- NOTE | 2021-07-09 07:32 | NUR ---
ASSUMED CARE: PT RESTING IN BED. BILATERAL WRIST RESTRAINTS IN PLACE DUE TO PULLING AT BIPAP. PRECEDEX PLACED ON STANDBY DUE TO NO AGITATION NOTED. BIPAP AT 16/8 AND 30% FIO2. SINUS TACH ON TELE. LABEL FUSER TENDER AT BEDSIDE. NO ACUTE NEEDS AT THIS TIME.
--- NOTE | 2021-07-09 08:04 | NUR ---
ASSUMED CARE: PT IS RESTING ON BIPAP AT THIS TIME. PT IS SATTING AT 94% WITH BIPAP AT 16/8 AND 30%FIO2. PT'S RHYTHM IS SINUS TACH AT 114. PRECEDEX DRIP WAS RUNNING AT 0.2 MCG/KG/MIN AND WAS STOPPED BY PRIMARY NURSE LS. PT CONTINUES TO HAVE BILAT SOFT WRIST RESTRAINTS TO PREVENT REMOVAL OF BIPAP MASK. COLLAZO CATHETER IN PLACE GRAINING TO GRAVITY.
--- NOTE | 2021-07-09 08:58 | NUR ---
SWALLOW TEST AT BEDSIDE, REMOVED BIPAP AND BILAT SOFT WRIST RESTRAINTS TEMPORARILY. PLACED NC ON PATIENT AT 4LPM DURING TEST. PT WAS ORIENTED TO PLACE AND SELF UPON QUESTION. PT WAS ABLE TO TOLERATE APPLESAUCE AND THICKENED WATER, ADMINSTERED PO MEDS WITH APPLESAUCE WITHOUT DIFFICULTY. PT WAS ABLE TO SWALLOW CINDY AMOUNTS OF YOGURT BUT WAS PLACED BACK ON BIPAP AND BILAT SOFT WRIST RESTRAINTS HE BECAME TACHYCARDIC WITH MOVEMENT
--- NOTE | 2021-07-09 12:24 | NUR ---
PT SWITCHED FROM BIPAP TO HFNC AT [address] STUDY PT SATTING WELL DURING IMAGING. PT ABLE TOP SWALLOW THICKENED WATER AND APPLESAUCE WITHOUT DIFFCULTY. WILL REMAIN ON HFNC UNLESS WORK OF BREATHING INCREASES.
--- NOTE | 2021-07-09 12:24 | NUR ---
PT TRANSPORTED TO CT VIA BED. NURSE AT BEDSIDE. RETURNED TO ROOM. REMAINS ON 4L HI-FLOW NC. VSS AT THIS TIME.
--- NOTE | 2021-07-09 17:52 | NUR ---
SHIFT SUMMARY: PT IS RESTING AND CALM AT THIS TIME. PT WAS SWITCHED FROM BIPAP TO HFNC AT 4 LPM, IS SATTING AT 98% AND SINUS TACHYCARDIA. PT'S PRECEDEX GTT WAS DC'D THIS MORNING AT 0800 AND NOT RESTARTED THROUGHOUT SHIFT. PT'S AGITATION WAS WELL MANAGED WITH HALDOL PER JUN. PT'S BILAT WRIST RESTRAINTS WERE DC'S MID SHIFT AND NOT NEEDED PT WAS COMFORTABLE AND NOT ATTEMNPTING TO REMOVE HFNC. PT WAS ABLE TO SWALLOW PO MEDS WITH APPLESAUCE. GUARDIAN AND HOUSING WERE CALLED BY PALLIATIVE CARE TO DISCUSS HOPSICE UPON DISCHARGE. PT WAS CHANGED TO DNR AFTER CONVERSATION. NO FURTHER NEEDS AT THIS TIME.
--- NOTE | 2021-07-09 18:24 | NUR ---
REVIEWED RECOVERY ASSISTANT NOTES AND ASSESSMENTS T/O SHIFT AND AGREE
[2021-07-10 03:55] LABS: Albumin, Blood 2.5 g/dL (3.4-5.0); Anion Gap 1 mmol/L (6-16); Blood Urea Nitrogen 24 mg/dL (8-24); Bun/Creatinine Ratio 36.1 (12.0-20.0); CO2, Blood 42 mmol/L (21-32); Calcium, Blood 9.4 mg/dL (8.5-10.1); Chloride, Blood 113 mmol/L (98-108); Creatinine, Blood 0.66 mg/dL (0.60-1.20); Glomerular Filtration Rate >60 (60-); Glucose, Blood 143 mg/dL (70-99); Phosphorus, Blood 3.5 mg/dL (2.5-4.9); Potassium, Blood 3.8 mmol/L (3.5-5.5); Sodium, Blood 156 mmol/L (136-145)
--- NOTE | 2021-07-10 07:30 | NUR ---
Patient awake in bed and is able to communicate his needs and speech is slurred and garbled and is difficult to understand at times. he continuely ask for water but is high aspiration risk and use thickened juice for po meds. He is on 4L HF NC and sats 97%. He has 16Fr cooper draining to gravity and has yellow urine output. He has 20ga IV IGLESIA and is infusing D5 1/4 NS at 75 ml/hr.
--- NOTE | 2021-07-10 09:30 | NUR ---
Patient continues to call for water and uses sponge and wetting. Called dr and she will be by soon. Care management by and send back to [facility] Hospice when admitted. He remains on 4L O2 via HF NC and sats 96%. Martin remains patent yellow urine.
--- NOTE | 2021-07-10 12:19 | NUR ---
Received referral from nurse critical care unit manager (Anabella Grande) on 07/10/2021. Patient is to discharge with orders for hospice and family elected [facility]. Gathered supporting documentation for referral (face sheet, labs, imaging, progress notes, palliative care note, and H&P) and sent to [facility] Hospice Clinical Coordinator (Bhargavi Brink) for review of hospice appropriateness and ability to accept patient onto service post discharge. Will await further information from hospice technical education teacher regarding the above. Kristy Pierce Referral Liaison
--- NOTE | 2021-07-10 12:30 | NUR ---
Patient jhas been resting since Dr Garcia came by. He remains on 4L O2 via HF NC and sats 94%. He continues to be able to c ommunicate his need.
--- NOTE | 2021-07-10 14:00 | NUR ---
Spiritual Care visit. Pt. is awake and in bed. After introductions pt. welcomes my visit. Re-establish rapport. Pt. displays evidence of resentment for what he perceives asthe cause of his health issuses. Listen Empathetically. Pt. verbally requests that this group teacher pray for him, but not in his presence. Pt. also verbalizes belief that said prayer has helped him in his healing. This group teacher honored pts. request by praying in my office.
--- NOTE | 2021-07-10 15:30 | NUR ---
Patient received full bed bath and linen change. He tolerated lunch with frequent coughing. He has been drinking water frequently approx 1.5 liters. Gave labatelol and haldol per JUN. Patient tolerated meds with thickened liquids. Uses call light frequently, approx every 5-10 minutes. Mario remains patent.
--- NOTE | 2021-07-10 17:30 | NUR ---
Paatient remains intubated and sedated with 8.0 ET 24 at lips and vent settings of AC/VC 14/550/60/14 andf sats 93%. He awakens to verbal stimuli and answers questions. He has PICC line to IGLESIA and is infusing Fentanyl at 25 mcg/min, Versed 3 mg/hr, NS at 150 ml/hr, Levophed remains on SB. Martin patent and had 800 ml.
--- NOTE | 2021-07-10 17:53 | NUR ---
Patient transferring to medical floor and will go to [facility] on . He tolerated dinner 100% and took meds with water. he has wet coughthat he has a hard time clearing. He continues D5 1/4 NS at 100 for high sodium. Speech still garbled and able to communicate his needs. Martin patent and had over 500ml's out.
--- NOTE | 2021-07-11 04:14 | NUR ---
SHIFT SUMMARY ADMITTED FOR ADMITTED FOR COPD EXACERBATION. DNR CODE. COMFORT CARE. COLLAZO CATHETER IN PLACE. D5 1/2 NS INFUSING @ 100 ML/HR. HE IS ON BEDREST. HE IS FROM [facility]. PLAN IS TO DC BACK TO [facility] ON HOSPICE.
[2021-07-11 05:35] LABS: Albumin, Blood 2.2 g/dL (3.4-5.0); Anion Gap 5 mmol/L (6-16); Blood Urea Nitrogen 17 mg/dL (8-24); Bun/Creatinine Ratio 29.9 (12.0-20.0); CO2, Blood 34 mmol/L (21-32); Calcium, Blood 8.4 mg/dL (8.5-10.1); Chloride, Blood 99 mmol/L (98-108); Creatinine, Blood 0.57 mg/dL (0.60-1.20); Glomerular Filtration Rate >60 (60-); Glucose, Blood 241 mg/dL (70-99); Phosphorus, Blood 2.6 mg/dL (2.5-4.9); Potassium, Blood 3.3 mmol/L (3.5-5.5)
[2021-07-11 05:50] LABS: Sodium, Blood 138 mmol/L (136-145)
--- NOTE | 2021-07-11 08:41 | NUR ---
MORNING STATUS: PATIENT RESTING IN BED. PATIENT DENIES PAIN, ANXIETY OR DIFFICULTY BREATHING. PATIENT APPEARS COMFORTABLE. INDEPENDENT WITH BRUSHING TEETH AND WASHING FACE WITH SET-UP. PATIENT HAS A FREQUENT COUGH.
--- NOTE | 2021-07-11 09:01 | NUR ---
Late Entry from 07/10/2021 at 1500: Received notification from [facility] Clinical Coordinator (Bhargavi Brink) that patient is hospice appropriate and able to be accepted onto service post discharge. Will attempt to reach patient's guardian (Sydnee Mohan) tomorrow- 07/11/2021 to further discuss the above. Will continue to monitor and follow for discharge. Kristy Pierce Referral Liaison
--- NOTE | 2021-07-11 10:19 | NUR ---
Comfort Care Visit Pt resting in bed upon arrival. Pt denies pain, anxiety and dyspnea at this time. Pt does report intermittent SOB. Listened as Pt reports plan to return back to [facility] today or tomorrow. Pt reports no concerns at this time. Spoke with Primary RN Linda and discussed case. Palliative Care will remain available.
--- NOTE | 2021-07-11 15:02 | NUR ---
Spiritual Care Visit... Pt. is sitting up in bed. Pt. welcomes my visit. Pt. is in good spirits as he anticipates being discharged tomorrow. Reinforced helpful attitudes and practices and provicded anticipatory guidance for pts. discharge. Pt. displayed evidence of understanding and agreement. COntinue to develop rapport. Pt. has consistanly requested that I prayer for him, but not in her presence. This self rising flour mixer has honored the pts. request.
--- NOTE | 2021-07-11 19:38 | NUR ---
END OF SHIFT SUMMARY: PATIENT DENIED PAIN OR DISCOMFORT THROUGHOUT THE SHIFT. PATIENT APPEARED COMFORTABLE AND WITHOUT SIGNS OF PAIN/DISCOMFORT. PATIENT DENIED SHORTNESS OF BREATH OR DIFFICULTY BREATHING. PATIENT CONTINUES TO HAVE A WET COUGH. PATIENT REPORTS IT IS NOT BOTHERING HIM. PATIENT UP TO THE BSC WITH MIN ONE ASSIST. PATIENT TOLERATED WELL. PLAN IS FOR THE PATIENT TO DISCHARGE TO [facility] TOMORROW AT 10:30. PATIENT IS AWARE OF THE PLAN.
--- NOTE | 2021-07-11 19:56 | NUR ---
CALLED HOSPITALIST PHARMACY INFORMED DAY RN THAT OUR PHARMACY IS OUT OF D5 1/ NS IV FLUIDS. I CALLED HOSPITALIST TO INFORM HER OF THIS. THIS PT IS COMFORT CARE AND DRINKING/EATING, IV FLUIDS ARE DC'D FOR NOW.
--- NOTE | 2021-07-12 04:18 | NUR ---
SHIFT SUMMARY ADMITTED FOR COPD EXACERBATION. DNR CODE. COMFORT CARE PT. COLLAZO CATHETER IN PLACE. PLAN [facility], HOPEFUL FOR TODAY. HE IS A STAND/PIVOT TRANSFER TO [facility]. REGULAR DIET HE IS COMFORT CARE. IV FLUIDS DC'D THIS SHIFT, SEE PREVIOUS NOTE. HE IS COOPERATIVE WITH CARE
[2021-07-12 06:20] LABS: Albumin, Blood 2.4 g/dL (3.4-5.0); Anion Gap 5 mmol/L (6-16); Blood Urea Nitrogen 18 mg/dL (8-24); CO2, Blood 35 mmol/L (21-32); Calcium, Blood 8.9 mg/dL (8.5-10.1); Chloride, Blood 102 mmol/L (98-108); Creatinine, Blood 0.72 mg/dL (0.60-1.20); Glomerular Filtration Rate >60 (60-); Glucose, Blood 85 mg/dL (70-99); Phosphorus, Blood 3.3 mg/dL (2.5-4.9); Potassium, Blood 4.1 mmol/L (3.5-5.5); Sodium, Blood 142 mmol/L (136-145)
--- NOTE | 2021-07-12 10:14 | NUR ---
Comfort Care Visit Pt resting in bed upon arrival. Pt denies pain, dyspnea, and anxiety. Pt appears comfortable with no S/S of distress at this time. Provided cup of water per Pt request. Offered gentle voice and therapeutic listening. Spoke with Gemma TERRELL&Lisa Wagner and discussed case. Pt to D/C with hospice services today. No concerns reported at this time. Palliative Care will remain available.
--- NOTE | 2021-07-12 10:32 | NUR ---
Late Entry from 07/11/2021 at 1000: Contacted patient's care facility- [facility] ([facility]) to further hospice services and election of [facility]. Patient's care facility is agreeable to the above. Additionally contacted patient's guardian (Ashley Mohan) regarding the above. Patient's guardian is also agree able to the above. Confirmed patient's preferred pharmacy ([facility]) with patient's care facility. Coordinated with discharging hospitalist (Dr. Sepulveda) to have hospice prescriptions written. Prescriptions for morphine 20mg/mL #30mL (0.25mL - 1mL PO/SL Q1H PRN SOB/pain), lorazepam 0.5mg #20 (1 - 2 PO Q4H PRN anxiety), and hyoscyamine 0.125mg SL tablets #30 (1 SL Q2H PRN secretions) will be provided to patient's facility via the discharge envelope and via fax to patient's preferred pharmacy. Explained to the patient that as patient would not yet be admitted to hospice service at the time of discharge those prescriptions would be patient/patient's family's responsibility to fill and pay for. Patient's facility verbalized understanding. Equipment- discussed with patient's facility that we contract through [employer] to provide DME such as hospital beds, commodes, etc. to patient. Wrote order for DME (hospital bed [with no rails], pump & pad, over bed table, oxygen at 1-5 LPM, bedside commode, walker and wheelchair) and sent to [employer] for delivery on - 07/12/2021. Patient's facility verbalized understanding. Will continue to monitor and follow as appropriate for discharge. Kristy Pierce Referral Liaison
--- NOTE | 2021-07-12 10:33 | NUR ---
Patient is to discharge at 1030 to [facility] with orders for hospice. Contacted [facility] ([place]) to arrange gurney transport to facility listed above. Pick-up at 1030 will be provided by the above. Faxed copy of face sheet, PCS form, and POLST to [facility] Business office per protocol. Placed copies of the above in nurse dining server for transport conductor. Notified nurse care provider (Chantel Faust), ACC (Beti Acosta), Charge RNs (Syl Cornejo and Azeb Solis), and bedside RN (Nicki Suarez) of the above. All are agreeable to the above. Requested discharge orders from hospitalist (Dr. Sepulveda). Provided hard copy prescriptions for morphine and lorazepam to facility via facility discharge envelope. Copies of prescriptions faxed to [facility] ([place]) and preferred pharmacy ([facility]). Faxed copies of discharge order and med list to [facility] Hospice operations section manager and [facility] ([place]). Additionally discharge medication list was faxed to preferred pharmacy ([facility]). No further interventions required. Kristy Pierce Referral Liaison
--- NOTE | 2021-07-12 10:58 | NUR ---
DISCHARGE SUMMARY PATIENT DISCHARGED BACK TO [facility] ON HOSPICE. PATIENT TRANSPORTED VIA STRETCHER AND ALL BELONGINGS TAKEN WITH. DISCHARGE PAPERWORK WITH HARD SCRIPTS GIVEN TO TRANSPORT STAFF. IV SANDRO COLLAZO IN PLACE AT DISCHARGE. REVIEWED DISCHARGE PAPERWORK WITH PATIENT, ALL QUESTIONS ANSWERED.
== END 2021-07-12 10:50 | disposition hospice, home (50) | DRG 177 ==
LOC: ER 09:15 → MEDS 12:34 → ICUW 12:34 → MEDS 13:05 → PCU 07-01 18:10 → ICUW 07-01 19:25 → ICUE 07-03 11:10 → MEDS 07-04 12:31 → PCU 07-06 10:07 → ICUW 07-06 11:39 → MEDS 07-10 18:43
PROVIDERS: Emergency Medicine; Internal Medicine; Internal Medicine Critical Care Medicine; ADMIT Internal Medicine
PROC: 5A09357 Assistance with Respiratory Ventilation, Less than 24 Consecutive Hours, Continuous Positive Airway Pressure (ICD-10-PCS; principal; 2021-07-02)
PROC: 5A09557 Assistance with Respiratory Ventilation, Greater than 96 Consecutive Hours, Continuous Positive Airway Pressure (ICD-10-PCS; 2021-07-06)
DX: J69.0 Pneumonitis due to inhalation of food and vomit (principal); J96.21 Acute and chronic respiratory failure with hypoxia; G92.8 Other toxic encephalopathy; J96.22 Acute and chronic respiratory failure with hypercapnia; J44.1 Chronic obstructive pulmonary disease with (acute) exacerbation; E87.1 Hypo-osmolality and hyponatremia; E87.3 Alkalosis; G93.1 Anoxic brain damage, not elsewhere classified; E87.0 Hyperosmolality and hypernatremia; Z20.822 Contact with and (suspected) exposure to COVID-19; R00.0 Tachycardia, unspecified; F20.9 Schizophrenia, unspecified; Z66 Do not resuscitate; D64.9 Anemia, unspecified; F17.210 Nicotine dependence, cigarettes, uncomplicated; E66.9 Obesity, unspecified; E87.6 Hypokalemia; R53.1 Weakness; E86.0 Dehydration; F41.9 Anxiety disorder, unspecified; Z68.26 Body mass index [BMI] 26.0-26.9, adult; Z98.890 Other specified postprocedural states; Z88.8 Allergy status to other drugs, medicaments and biological substances; Z79.899 Other long term (current) drug therapy
CPT/HCPCS: 0241U; 36415; 36600; 51703; 70450; 71045; 71046; 80048; 80053; 80069; 81001; 82330; 82803; 83735; 83880; 84443; 84484; 85025; 85027; 93005; 93010; 94640; 94660; 94664; 94760; 94762; 96374; 97110; 97162; 97165; 97530; 97535; 99285-25; A9270; J0360; J0696; J1630; J1650; J2060; J2920; J2930; J3475; J3480; J7030; J7042; J7050; J7070; J7512

== ENCOUNTER → 2021-09-12 | Outpatient (CLI) | payer MEDICARE ==
[~2021-09-12] MED LIST changes: +HALOPERIDOL2 MG/1 M1 PO; +LOPE2C PO; +ONDA4 PO; +RISP2 PO
[2021-09-12 12:19] LABS: BASOPHILS ABSOLUTE AUTO 0.04 K/mm3 (0.00-0.23); BASOPHILS PERCENT AUTO 1 % (0-2); EOSINOPHILS ABSOLUTE AUTO 0.13 K/mm3 (0.00-0.68); EOSINOPHILS PERCENT AUTO 2 % (0-6); Hematocrit 38.8 % (37.0-53.0); Hemoglobin 12.4 g/dL (13.5-17.5); IMMATURE GRAN ABSOLUTE AUTO 0.01 K/mm3 (0.00-0.10); IMMATURE GRAN PERCENT AUTO 0 % (0-1); LYMPHOCYTES ABSOLUTE AUTO 1.33 K/mm3 (0.84-5.20); LYMPHOCYTES PERCENT AUTO 25 % (21-46); MONOCYTES ABSOLUTE AUTO 0.65 K/mm3 (0.16-1.47); MONOCYTES PERCENT AUTO 12 % (4-13); Mean Corpuscular HGB 29.2 pg (26.0-34.0); Mean Corpuscular Volume 91 fL (80-100); Mean Platelet Volume 9.2 fL (9.1-12.4); NEUTROPHILS ABSOLUTE AUTO 3.17 K/mm3 (1.96-9.15); NEUTROPHILS PERCENT AUTO 59 % (41-73); Platelet Count 296 K/mm3 (150-400); RDW Coefficient Variation 16.4 % (11.7-14.2); RDW Standard Deviation 55.3 fL (35.1-46.3); Red Blood Cell Count 4.25 M/mm3 (4.30-5.90); White Blood Cell Count 5.33 K/mm3 (4.00-11.30)
[2021-09-12 12:21] LABS: Alanine Aminotransfer (ALT/SGP 32 U/L (12-78); Albumin, Blood 3.7 g/dL (3.4-5.0); Albumin/Globulin Ratio 1.2 (0.8-1.8); Alk Phos 50 U/L (50-136); Anion Gap 4 mmol/L (6-16); Aspartate Aminotrans (AST/SGOT 19 U/L (12-37); Bilirubin, Total 0.3 mg/dL (0.1-1.0); Blood Urea Nitrogen 6 mg/dL (8-24); Bun/Creatinine Ratio 10.9 (12.0-20.0); CHOL/HDL RATIO 2.9; CO2, Blood 33 mmol/L (21-32); Calcium, Blood 9.2 mg/dL (8.5-10.1); Chloride, Blood 96 mmol/L (98-108); Cholesterol 189 mg/dL (50-200); Creatinine, Blood 0.55 mg/dL (0.60-1.20); Globulin, Blood 3.1 g/dL (2.2-4.0); Glomerular Filtration Rate 116 (60-); Glucose, Blood 82 mg/dL (70-99); HDL Cholesterol 66 mg/dL (>39); LDL/HDL RATIO 1.7; Low Density Lipoprotein Chol 110 mg/dL (0-110); Potassium, Blood 4.5 mmol/L (3.5-5.5); Sodium, Blood 133 mmol/L (136-145); Total Protein, Blood 6.8 g/dL (6.4-8.2); Triglycerides 67 mg/dL (30-160); Very Low Density Lipoprot Chol 13 mg/dL (6-32)
== END | disposition home or self-care (01) ==
LOC: LAB 10:12 → LAB SHORT 10:12
PROVIDERS: Physician Assistant
DX: I10 Essential (primary) hypertension (principal)
CPT/HCPCS: 80053; 80061; 85025

== ENCOUNTER → 2022-11-20 | Outpatient (CLI) | payer MEDICARE, OTHER ==
[2022-11-20 16:45] LABS: Bun/Creatinine Ratio 16.1 (12.0-20.0); Creatinine, Blood 0.56 mg/dL (0.60-1.20); Potassium, Blood 4.2 mmol/L (3.5-5.5)
== END ==
LOC: LAB SHORT 13:20 → LAB 13:20
PROVIDERS: Physician Assistant
DX: E78.1 Pure hyperglyceridemia (principal); E87.1 Hypo-osmolality and hyponatremia
CPT/HCPCS: 80048

== ENCOUNTER → 2023-01-03 | Outpatient (CLI) | payer MEDICARE, OTHER ==
[2023-01-03 16:17] LABS: Creatinine, Urine Random 16.3 mg/dL (27.00-270.00)
== END | disposition home or self-care (01) ==
LOC: LAB SHORT 14:36 → LAB 14:36
PROVIDERS: Family Medicine
DX: E87.1 Hypo-osmolality and hyponatremia (principal)
CPT/HCPCS: 82570; 83935; 84300

== ENCOUNTER → 2023-01-08 | Outpatient (CLI) | payer MEDICARE, OTHER | LOC: LAB 15:55 → LAB SHORT 15:55 | DX: E87.1 Hypo-osmolality and hyponatremia (principal) | CPT/HCPCS: 84550 ==

== ENCOUNTER → 2023-03-03 | Outpatient (CLI) | payer MEDICARE, OTHER ==
[2023-03-03 19:51] LABS: Potassium, Urine, Random 12.6 mmol/L (12.0-75.0)
== END ==
LOC: LAB 13:13 → LAB SHORT 13:13
PROVIDERS: Internal Medicine Nephrology
DX: E87.1 Hypo-osmolality and hyponatremia (principal)
CPT/HCPCS: 83935; 84133; 84300

== ENCOUNTER → 2023-03-05 | Outpatient (CLI) | payer MEDICARE, OTHER ==
[2023-03-05 20:59] LABS: Albumin, Blood 3.8 g/dL (3.4-5.0); Albumin/Globulin Ratio 1.1 (0.8-1.8); Bilirubin, Total 0.2 mg/dL (0.1-1.0); Calcium, Blood 8.9 mg/dL (8.5-10.1); Creatinine, Blood 0.58 mg/dL (0.60-1.20); Globulin, Blood 3.6 g/dL (2.2-4.0); Potassium, Blood 4.3 mmol/L (3.5-5.5); Total Protein, Blood 7.4 g/dL (6.4-8.2)
== END ==
LOC: LAB 09:40 → LAB SHORT 09:40
PROVIDERS: Internal Medicine Nephrology
DX: E87.1 Hypo-osmolality and hyponatremia (principal)
CPT/HCPCS: 80053; 83930